=== PATIENT | female | born 1965 | race Asian ===

== ENCOUNTER 2017-01-05 08:23 | Emergency (ER) | payer OTHER ==
[~2017-01-05] VITALS: Ht 167.6 cm; Wt 140.6 kg
[2017-01-05 08:32] VITALS: BP 223/129; TEMP 98.8
== END 2017-01-05 09:25 | disposition home or self-care (01) ==
LOC: ED 08:23
DX: S60.032A Contusion of left middle finger without damage to nail, initial encounter (principal); S60.413A Abrasion of left middle finger, initial encounter; W20.8XXA Other cause of strike by thrown, projected or falling object, initial encounter; Y92.238 Other place in hospital as the place of occurrence of the external cause
CPT/HCPCS: 99282

== ENCOUNTER 2020-04-15 05:27 | Inpatient (IN) | payer OTHER ==
[~2020-04-15] VITALS: Ht 167.6 cm; Wt 134.9 kg
[2020-04-15 05:44] VITALS: BP 185/112; TEMP 98.9
[2020-04-15 06:33] LABS: PLATELET COUNT 186 K/uL (152-353)
[2020-04-15 06:39] LABS: POTASSIUM 3.5 mmol/L (3.6-5.2)
[2020-04-15 08:00] VITALS: BP 160/90
[2020-04-15 08:25] VITALS: BP 193/111; TEMP 97.9; Ht 167.6 cm; Wt 134.9 kg
[2020-04-15] MEDS ORDERED: METOPROLOL25 M1 PO (11:51)
[2020-04-15] MEDS ORDERED: HYDROCHLOROT12.5 M1 PO (11:54)
[2020-04-15] MEDS ORDERED: METF500T PO (11:55)
[2020-04-15 12:00] VITALS: BP 182/97; TEMP 100
[2020-04-15 16:00] VITALS: BP 196/119; TEMP 101.5
[2020-04-15 19:51] VITALS: BP 178/106; TEMP 98
[2020-04-16] VITALS: BP 130/72; TEMP 98
[2020-04-16 04:00] VITALS: BP 136/81; TEMP 98.2
[2020-04-16 08:19] VITALS: BP 154/82; TEMP 98.7
[2020-04-16 11:44] LABS: POTASSIUM 3.7 mmol/L (3.6-5.2)
[2020-04-16 11:47] LABS: PLATELET COUNT 172 K/uL (152-353)
[2020-04-16 12:00] VITALS: BP 151/75; TEMP 97.6
[2020-04-16 16:00] VITALS: BP 160/71; TEMP 101.6
[2020-04-16 20:00] VITALS: BP 136/75; TEMP 99.4
[2020-04-17] VITALS: BP 143/74; TEMP 101.1
[2020-04-17 04:00] VITALS: BP 142/73; TEMP 99
[2020-04-17 08:00] VITALS: BP 137/82; TEMP 98.7
[2020-04-17 12:00] VITALS: BP 138/86; TEMP 98.3
[2020-04-17 16:26] VITALS: BP 135/71; TEMP 97.7
[2020-04-17 20:00] VITALS: BP 167/93; TEMP 100.7
[2020-04-18] VITALS: BP 153/78; TEMP 98.9
[2020-04-18 04:00] VITALS: BP 159/70; TEMP 99
[2020-04-18 07:50] LABS: PLATELET COUNT 91 K/uL (152-353)
[2020-04-18 08:00] VITALS: BP 175/94; TEMP 98.9
[2020-04-18 08:32] LABS: POTASSIUM 3.3 mmol/L (3.6-5.2)
[2020-04-18 12:00] VITALS: BP 222/127; TEMP 98.6
[2020-04-18 16:00] VITALS: BP 162/94; TEMP 98.2
[2020-04-18 20:00] VITALS: BP 176/85; TEMP 99.1
[2020-04-19] VITALS: BP 151/91; TEMP 98.8
[2020-04-19 04:00] VITALS: BP 171/88; TEMP 98.7
[2020-04-19 05:49] LABS: POTASSIUM 3.5 mmol/L (3.6-5.2)
[2020-04-19 08:00] VITALS: BP 171/90; TEMP 98.7
[2020-04-19 12:00] VITALS: BP 166/86; TEMP 98.2
[2020-04-19 16:00] VITALS: BP 165/94; TEMP 98.1
== END 2020-04-19 16:40 | disposition home or self-care (01) | DRG 605 ==
LOC: ED 05:27 → MED/SURG 06:53
PROVIDERS: Internal Medicine; ADMIT Emergency Medicine
DX: S91.109A Unspecified open wound of unspecified toe(s) without damage to nail, initial encounter (principal); E87.1 Hypo-osmolality and hyponatremia; L08.89 Other specified local infections of the skin and subcutaneous tissue; E87.6 Hypokalemia; I10 Essential (primary) hypertension; R74.0 Nonspecific elevation of levels of transaminase and lactic acid dehydrogenase [LDH]; B96.89 Other specified bacterial agents as the cause of diseases classified elsewhere; S92.912A Unspecified fracture of left toe(s), initial encounter for closed fracture; E11.69 Type 2 diabetes mellitus with other specified complication; W22.8XXA Striking against or struck by other objects, initial encounter; Y92.89 Other specified places as the place of occurrence of the external cause
CPT/HCPCS: 80048; 80053; 80202; 82948; 83605; 85027; 87040; 87070; 87077; 87186; 87205; 96365; 96366; 96372; 96374; 99284; J0360; J0696; J1650; J1815; J3370; J3490

== ENCOUNTER 2020-04-20 15:32 | Inpatient (IN) | payer OTHER ==
[~2020-04-20] VITALS: Ht 167.6 cm; Wt 129.5 kg
[~2020-04-20 15:32] MED LIST: HYDROCHLOROT12.5 M1 PO; METF500T PO; METOPROLOL25 M1 PO
[2020-04-21 01:24] VITALS: BP 198/97; TEMP 98.4; Ht 167.6 cm; Wt 129.5 kg
[2020-04-21 04:00] VITALS: BP 181/74; TEMP 98.5
[2020-04-21 06:16] LABS: PLATELET COUNT 272 K/uL (152-353)
[2020-04-21 06:19] LABS: POTASSIUM 3.5 mmol/L (3.6-5.2)
[2020-04-21 08:00] VITALS: BP 173/95; TEMP 98.7
[2020-04-21 12:00] VITALS: BP 171/97; TEMP 98.1
[2020-04-21 16:00] VITALS: BP 156/75; TEMP 98.1
[2020-04-21 20:00] VITALS: BP 129/90; TEMP 98.6
[2020-04-22] VITALS (13 sets, daily range): BP systolic 139–183; BP diastolic 81–107; TEMP 97.6–98.1
[2020-04-22 05:27] LABS: PLATELET COUNT 253 K/uL (152-353)
[2020-04-22 05:32] LABS: POTASSIUM 3.8 mmol/L (3.6-5.2)
[2020-04-23] VITALS: BP 137/82; TEMP 98.1
[2020-04-23 03:43] VITALS: BP 138/76; TEMP 98.1
[2020-04-23 08:00] VITALS: BP 158/95; TEMP 97.9
[2020-04-23 12:00] VITALS: BP 148/83; TEMP 99.1
[2020-04-23 16:00] VITALS: BP 158/92; TEMP 99.1
[2020-04-23 20:23] VITALS: BP 171/80; TEMP 99.1
[2020-04-24] VITALS: BP 176/89; TEMP 99.2
[2020-04-24 03:48] VITALS: BP 164/85; TEMP 99.1
[2020-04-24 08:00] VITALS: BP 180/92; TEMP 98.5
[2020-04-24 12:00] VITALS: BP 156/89; TEMP 99.1
[2020-04-24 16:00] VITALS: BP 170/100; TEMP 99.1
[2020-04-24 20:07] VITALS: BP 185/98; TEMP 98.9
[2020-04-25] VITALS (7 sets, daily range): BP systolic 168–195; BP diastolic 79–107; TEMP 98–99.1
[2020-04-25 02:22] LABS: PLATELET COUNT 221 K/uL (152-353)
[2020-04-25 02:26] LABS: POTASSIUM 3.1 mmol/L (3.6-5.2)
[2020-04-26] VITALS (7 sets, daily range): BP systolic 129–190; BP diastolic 66–101; TEMP 98.2–99.1
[2020-04-26 02:27] LABS: POTASSIUM 3.2 mmol/L (3.6-5.2)
[2020-04-27 04:00] VITALS: BP 152/77; TEMP 98.4
[2020-04-27 08:00] VITALS: BP 178/104; TEMP 99.7
[2020-04-27 12:00] VITALS: BP 143/88; TEMP 100.3
[2020-04-27 16:00] VITALS: BP 138/84; TEMP 102.5
[2020-04-27 20:00] VITALS: BP 149/102; TEMP 97.9
[2020-04-28] VITALS (7 sets, daily range): BP systolic 150–181; BP diastolic 71–104; TEMP 98–100.9
[2020-04-28] MEDS ORDERED: LISI20TA11 PO (11:24)
[2020-04-28] MEDS ORDERED: HYDR25TA57 PO (11:24)
[2020-04-28] MEDS ORDERED: POTA20TA4 PO (11:25)
[2020-04-28] MEDS ORDERED: AMLODIPINE BESYLATE PO (11:25)
[2020-04-29] VITALS: BP 163/88; BP 166/85; TEMP 102.6; TEMP 98.9
[2020-04-29 03:50] VITALS: BP 138/79; TEMP 101.1
[2020-04-29 08:00] VITALS: BP 138/82; TEMP 97.6
[2020-04-29 12:00] VITALS: BP 152/80; TEMP 98
[2020-04-29 15:48] LABS: POTASSIUM 3.5 mmol/L (3.6-5.2)
[2020-04-29 15:53] LABS: PLATELET COUNT 165 K/uL (152-353)
[2020-04-29 16:00] VITALS: BP 121/74; TEMP 98.1
[2020-04-29 20:00] VITALS: BP 135/79; TEMP 99.4
[2020-04-30 00:04] VITALS: BP 120/72; TEMP 98.3
[2020-04-30 03:56] VITALS: BP 121/76; TEMP 97.9
[2020-04-30 08:00] VITALS: BP 143/79; TEMP 99
[2020-04-30 12:00] VITALS: BP 127/80; TEMP 98.5
[2020-04-30 16:00] VITALS: BP 127/81; TEMP 98.5
== END 2020-05-01 00:15 | disposition home or self-care (01) | DRG 617 ==
LOC: MED/SURG 15:32
PROVIDERS: ADMIT Internal Medicine
PROC: 0Y6Y0Z3 Detachment at Left 5th Toe, Low, Open Approach (ICD-10-PCS; principal; 2020-04-22)
PROC: 0JBR0ZZ Excision of Left Foot Subcutaneous Tissue and Fascia, Open Approach (ICD-10-PCS; 2020-04-22)
PROC: 06HM33Z Insertion of Infusion Device into Right Femoral Vein, Percutaneous Approach (ICD-10-PCS; 2020-04-22)
PROC: B54BZZA Ultrasonography of Right Lower Extremity Veins, Guidance (ICD-10-PCS; 2020-04-22)
PROC: 2W1TX6Z Compression of Left Foot using Pressure Dressing (ICD-10-PCS; 2020-04-22)
DX: E11.69 Type 2 diabetes mellitus with other specified complication (principal); I96 Gangrene, not elsewhere classified; M86.672 Other chronic osteomyelitis, left ankle and foot; E11.52 Type 2 diabetes mellitus with diabetic peripheral angiopathy with gangrene; I10 Essential (primary) hypertension; E87.6 Hypokalemia; I87.8 Other specified disorders of veins; E83.42 Hypomagnesemia
CPT/HCPCS: 36415; 36571; 80048; 80202; 83735; 85027; 87070; 87205; 87635; A9576; C1751; C1768; J0330; J0360; J0692; J0696; J1335; J1642; J1650; J2250; J2270; J2704; J3010; J3370; J3475; J3490; J7040; U00003

== ENCOUNTER 2020-05-18 09:22 | Outpatient (CLI) | payer OTHER ==
[~2020-05-18 09:22] MED LIST changes: +AMLODIPINE BESYLATE PO; +HYDR25TA57 PO; +LISI20TA11 PO; +POTA20TA4 PO
[2020-05-18 09:30] VITALS: BP 137/91; TEMP 98.6
== END 2020-05-18 20:46 | disposition home or self-care (01) ==
LOC: INF 09:22
DX: Z45.1 Encounter for adjustment and management of infusion pump (principal)
CPT/HCPCS: 96374

== ENCOUNTER 2021-03-02 07:17 | Emergency (ER) | payer OTHER ==
[~2021-03-02] VITALS: Ht 167.6 cm; Wt 140.6 kg
[2021-03-02 07:26] VITALS: TEMP 97.1
[2021-03-02 07:59] LABS: PLATELET COUNT 150 K/uL (152-353)
[2021-03-02 08:03] LABS: POTASSIUM 3.7 mmol/L (3.6-5.2)
[2021-03-02 09:00] VITALS: BP 189/118
== END 2021-03-02 09:00 | disposition still patient (30) ==
LOC: ED 07:17
PROVIDERS: Family Medicine
DX: R30.0 Dysuria (principal); M54.5 Low back pain
CPT/HCPCS: 80053; 81000; 85027; 99283

== ENCOUNTER 2021-07-06 11:10 | Emergency (ER) | payer OTHER ==
[~2021-07-06] VITALS: Ht 167.6 cm; Wt 135.2 kg
[2021-07-06 11:12] VITALS: TEMP 98.1
[2021-07-06 12:25] VITALS: BP 175/106
== END 2021-07-06 12:25 | disposition home or self-care (01) ==
LOC: ED 11:10
DX: L02.612 Cutaneous abscess of left foot (principal); R60.0 Localized edema; I10 Essential (primary) hypertension
CPT/HCPCS: 96372; 99283; J0696; J1885